=== PATIENT | female | born 2000 | race American Indian/Alaskan Native ===

== ENCOUNTER 2019-01-13 10:33 | Emergency (ER) | payer SELFPAY ==
[2019-01-13 10:42] VITALS: BP 101/62
--- NOTE | 2019-01-13 12:45 | Emergency Department Report ---
HPI - General Chief Complaint: Medical Clearance Time Seen by Provider: 01/13/19 11:28 - HPI HPI: 19 yo AA F presents to the emergency department with the complaint of some intermittent pelvic pain, intermittent vaginal bleeding, while . The patient was sent home from [facility] due to her symptoms and their concern for a high risk . She is about 4 months but does not have a local primary care physician or [facility]. She allegedly has a history of "my placenta is covering the opening to my uterus." She has not taken anything for her symptoms prior to presentation. She denies any dysuria, vaginal discharge, fever, nausea, vomiting, back pain. ED Past Medical Hx - Past Medical History Previous Medical History?: No - Surgical History Past Surgical History?: No - Social History Smoking Status: Never Smoker Substance Use Type: None - Medications Home Medications: Home Medications Medication Instructions Recorded Confirmed Last Taken Type Vit-Fe Fumar-FA [ 1 tab PO QDAY #30 tablet 01/13/19 Unknown Rx Vitamin] ED Review of Systems ROS: Stated complaint: TEST Other details as noted in HPI Comment: All other systems reviewed and negative Constitutional: denies: chills, fever Respiratory: denies: shortness of breath Cardiovascular: denies: chest pain Gastrointestinal: denies: vomiting, diarrhea Genitourinary: other (intermittent vaginal bleeding and pelvic pain). denies: dysuria, discharge Musculoskeletal: denies: back pain Physical Exam - Physical Exam Vital Signs: Vital Signs 01/13/19 10:37 Temperature 97.8 F Pulse Rate 77 Respiratory 16 Rate Blood Pressure 101/62 O2 Sat by Pulse 100 Oximetry Physical Exam: GENERAL: The patient is well-developed well-nourished. HENT: Normocephalic. Atraumatic. Patient has moist mucous membranes. EYES: Extraocular motions are intact. NECK: Supple. Trachea is midline. CHEST/LUNGS: Clear to auscultation. There is no respiratory distress noted. HEART/CARDIOVASCULAR: Regular. There is no tachycardia. There is no murmur. ABDOMEN: Abdomen is soft, nontender. Patient has normal bowel sounds. There is no abdominal distention. SKIN: Skin is warm and dry. NEURO: The patient is awake, alert, and oriented. The patient is cooperative. Normal speech. MUSCULOSKELETAL: There is no tenderness or deformity. There is no evidence of acute injury. ED Course Vital Signs 01/13/19 10:37 Temperature 97.8 F Pulse Rate 77 Respiratory 16 Rate Blood Pressure 101/62 O2 Sat by Pulse 100 Oximetry ED Medical Decision Making - Lab Data Result diagrams: 01/13/19 12:55 - Radiology Data Radiology results: report reviewed ULTRASOUND OBSTETRIC Indication: Preg, bleeding, history of placenta previa Findings: There is a single intrauterine . BPD = 3.9 cm = 17 weeks, 5 day(s). Head circumference = 15.1 cm = 18 weeks, 1 day(s). Abdominal circumference = 12.4 cm = 18 weeks, 0 day(s). Femur length = 2.9 cm = 18 weeks, 6 day(s). Overall estimated sonographic age = 18 weeks, 1 day(s). heart rate is 138 beats per minute. Estimated weight is 238 grams The cervix measures 3.3 cm. position is breech. Placenta is right lateral and grade 0. The placenta appears to be free of the cervical os. Amniotic fluid volume appears normal. Four-chamber view of the heart could not be visualized cord insertion could not be visualized. Impression: 1. Single living intrauterine with estimated sonographic age of 18 weeks, 1 day(s). 2. No sonographic abnormality identified. Four-chamber view of the heart and cord insertion could not be visualized. - Medical Decision Making This patient presents to the emergency department with concern for the health of her she's had some recent pelvic pains, vaginal bleeding and allegedly a history of placenta previa. Labs are mostly unremarkable. Ultrasound shows a live intrauterine without any obvious abnormalities. Initially there was some concern that the patient was Rh-, which she is, but she later tells us that she recently had a RhoGAM shot about one week ago. Her vital signs are stable throughout her ED course. The rest of blood work is unremarkable. She appears safe for discharge home at this time. She has been given multiple referrals for local [facility] groups in the area. She will return to the emergency Department with any worsening of her symptoms or any acute distress. - Differential Diagnosis , threatened miscarriage, spontaneous miscarriage, fibroids Critical Care Time: No Critical care attestation.: If time is entered above; I have spent that time in minutes in the direct care of this critically ill patient, excluding procedure time. ED Disposition Clinical Impression: Qualifiers: Weeks of gestation: 18 weeks Qualified Code(s): Z3A.18 - 18 weeks gestation of Disposition: DC-01 TO HOME OR SELFCARE Is pt being admited?: No Condition: Stable Instructions: (ED) Additional Instructions: Please follow-up with an [facility] in the next few days. Return to the emergency Department with any worsening of your symptoms or any acute distress. Prescriptions: Vit-Fe Fumar-FA [ Vitamin] 1 tab PO QDAY #30 tablet Referrals: [facility] [Provider Group] - 2-3 Days [facility] [Provider Group] - 2-3 Days [facility] [Provider Group] - 2-3 Days Time of Disposition: 14:25
--- NOTE | 2019-01-13 13:15 | Ultrasound Report ---
ULTRASOUND OBSTETRIC Indication: Preg, bleeding, history of placenta previa Findings: There is a single intrauterine . BPD = 3.9 cm = 17 weeks, 5 day(s). Head circumference = 15.1 cm = 18 weeks, 1 day(s). Abdominal circumference = 12.4 cm = 18 weeks, 0 day(s). Femur length = 2.9 cm = 18 weeks, 6 day(s). Overall estimated sonographic age = 18 weeks, 1 day(s). heart rate is 138 beats per minute. Estimated weight is 238 grams The cervix measures 3.3 cm. position is breech. Placenta is right lateral and grade 0. The placenta appears to be free of the cervical os. Amniotic fluid volume appears normal. Four-chamber view of the heart could not be visualized cord insertion could not be visualized. Impression: 1. Single living intrauterine with estimated sonographic age of 18 weeks, 1 day(s). 2. No sonographic abnormality identified. Four-chamber view of the heart and cord insertion could not be visualized. Signer Name: Deep Resendiz MD Signed: 01/13/2019 1:11 PM Workstation Name: [id number]
[2019-01-13 13:16] LABS: Basophils % (Auto) 0.2 % (0.0-1.8); Eosinophils # (Auto) 0.1 K/mm3 (0.0-0.4); Eosinophils % (Auto) 1.3 % (0.0-4.3); Hematocrit 40.6 % (30.3-42.9); Hemoglobin 13.4 gm/dl (10.1-14.3); Lymphocytes # (Auto) 1.2 K/mm3 (1.2-5.4); Lymphocytes % (Auto) 16.3 % (13.4-35.0); Mean Corpuscular HGB Conc 33 % (30-34); Mean Corpuscular Volume 84 fl (79-97); Monocytes # (Auto) 0.5 K/mm3 (0.0-0.8); Monocytes % (Auto) 6.2 % (0.0-7.3); Platelet Count 178 K/mm3 (140-440); Red Blood Count 4.82 M/mm3 (3.65-5.03); Red Cell Distribution Width 13.5 % (13.2-15.2)
== END 2019-01-13 14:42 | disposition home or self-care (01) ==
LOC: ED 10:33
DX: O26.892 Other specified pregnancy related conditions, second trimester (principal); R10.2 Pelvic and perineal pain; Z3A.18 18 weeks gestation of pregnancy
CPT/HCPCS: 36415; 76805; 84703; 85025; 85461; 86850; 86870; 86900; 86901

== ENCOUNTER 2019-04-13 17:19 | Outpatient (CLI) | payer MEDICAID ==
[2019-04-13 17:52] VITALS: BP 103/69
[2019-04-13 18:48] LABS: Bacteria,Urine 4+ /HPF (Negative); Bilirubin,Urine NEG (Negative); Blood,Urine NEG (Negative); Color,Urine Yellow (Yellow); Protein,Urine <15 mg/dL mg/dL (Negative)
[2019-04-13] MEDS ORDERED: LACTATED RINGERS 500 ML IV ONE (19:30)
== END 2019-04-13 19:10 | disposition home or self-care (01) ==
LOC: TRG 17:19
PROVIDERS: ATTEND Pediatrics Neonatal-Perinatal Medicine
DX: O26.893 Other specified pregnancy related conditions, third trimester (principal); O47.03 False labor before 37 completed weeks of gestation, third trimester; R42 Dizziness and giddiness; Z3A.31 31 weeks gestation of pregnancy
CPT/HCPCS: 59025; 81001

== ENCOUNTER 2021-03-08 08:16 | Emergency (ER) | payer MEDICAID ==
[2021-03-08 08:31] VITALS: BP 132/85
--- NOTE | 2021-03-08 09:57 | Emergency Department Report ---
ED General Adult HPI - General Chief complaint: Upper Respiratory Infection Stated complaint: BA/COUGH/CHILLS/FEVER Time Seen by Provider: 03/08/21 09:33 Source: patient Mode of arrival: Ambulatory Limitations: No Limitations - History of Present Illness Initial comments: 21-year-old -[place]ian female patient presents with complaints of body aches, chills, and cough x3 days. She states the cough is nonproductive and denies any shortness of breath or chest pain. Patient states her temp at home was 99 orally. She has a past medical history. Patient also denies any loss of taste or smell, nausea/vomiting/diarrhea, abdominal pain, urinary symptoms, and states she has not had the COVID-19 vaccine. Patient has not been tested for Covid since the onset of her symptoms. She also states she has a scratchy throat that is nonpainful - Related Data Previous Rx's Medication Instructions Recorded Last Taken Type Vit-Fe Fumar-FA [ 1 tab PO QDAY #30 tablet 01/13/19 05/27/19 09:00 Rx Vitamin] Ferrous Sulfate [Feosol 325 MG tab] 325 mg PO BID #60 tablet 05/30/19 Unknown Rx Ibuprofen [Motrin] 800 mg PO Q8HR PRN #30 tablet 05/30/19 Unknown Rx oxyCODONE /ACETAMINOPHEN [Percocet 1 tab PO Q6HR PRN #30 tablet 05/30/19 Unknown Rx 5/325] Benzonatate 200 mg PO TID PRN #21 capsule 03/08/21 Unknown Rx Loratadine 10 mg PO QDAY #10 tablet 03/08/21 Unknown Rx guaiFENesin [Guaifenesin ER] 1,200 mg PO BID #14 tab.er.12h 03/08/21 Unknown Rx predniSONE [Deltasone] 20 mg PO BID 3 Days #6 tab 03/08/21 Unknown Rx Allergies Allergy/AdvReac Type Severity Reaction Status Date / Time No Known Allergies Allergy Verified 03/08/21 08:31 ED Review of Systems ROS: Stated complaint: BA/COUGH/CHILLS/FEVER Other details as noted in HPI Constitutional: chills, malaise, weakness. denies: diaphoresis ENT: denies: throat pain Respiratory: cough. denies: shortness of breath Cardiovascular: denies: chest pain Gastrointestinal: denies: abdominal pain, nausea, vomiting Genitourinary: denies: urgency, dysuria, frequency Skin: denies: rash, lesions Neurological: denies: headache Hematological/Lymphatic: denies: swollen glands ED Past Medical Hx - Past Medical History Hx Hypertension: No Hx Congestive Heart Failure: No Hx Diabetes: No Hx Deep Vein Thrombosis: No Hx Renal Disease: No Hx Sickle Cell Disease: No Hx Seizures: No Hx Asthma: No Hx COPD: No Hx HIV: No - Social History Smoking Status: Never Smoker - Medications Home Medications: Home Medications Medication Instructions Recorded Confirmed Last Taken Type Vit-Fe Fumar-FA [ 1 tab PO QDAY #30 tablet 01/13/19 05/27/19 05/27/19 09:00 Rx Vitamin] Ferrous Sulfate [Feosol 325 MG tab] 325 mg PO BID #60 tablet 05/30/19 Unknown Rx Ibuprofen [Motrin] 800 mg PO Q8HR PRN #30 tablet 05/30/19 Unknown Rx oxyCODONE /ACETAMINOPHEN [Percocet 1 tab PO Q6HR PRN #30 tablet 05/30/19 Unknown Rx 5/325] Benzonatate 200 mg PO TID PRN #21 capsule 03/08/21 Unknown Rx Loratadine 10 mg PO QDAY #10 tablet 03/08/21 Unknown Rx guaiFENesin [Guaifenesin ER] 1,200 mg PO BID #14 tab.er.12h 03/08/21 Unknown Rx predniSONE [Deltasone] 20 mg PO BID 3 Days #6 tab 03/08/21 Unknown Rx ED Physical Exam - General Limitations: No Limitations General appearance: alert, in no apparent distress - Head Head exam: Present: atraumatic, normocephalic - Eye Eye exam: Present: normal appearance. Absent: scleral icterus - ENT ENT exam: Present: normal exam, normal orophraynx - Neck Neck exam: Present: normal inspection, full ROM. Absent: tenderness, lymphadeno john - Respiratory Respiratory exam: Present: normal lung sounds bilaterally. Absent: respiratory distress - Cardiovascular Cardiovascular Exam: Present: regular rate, normal rhythm - Back Exam Back exam: Present: full ROM - Neurological Exam Neurological exam: Present: alert, oriented X3 - Psychiatric Psychiatric exam: Present: normal affect, normal mood - Skin Skin exam: Present: warm, dry, intact, normal color. Absent: rash ED Course Vital Signs 03/08/21 08:27 Temperature 98.1 F Pulse Rate 103 H Respiratory 17 Rate Blood Pressure 132/85 O2 Sat by Pulse 100 Oximetry ED Medical Decision Making - Radiology Data Radiology results: report reviewed CHEST 2 VIEWS INDICATION / CLINICAL INFORMATION: cough x 3 days. COMPARISON: None available. FINDINGS: SUPPORT DEVICES: None. HEART / MEDIASTINUM: No significant abnormality. LUNGS / PLEURA: No significant pulmonary or pleural abnormality. No pneumothorax. ADDITIONAL FINDINGS: No significant additional findings. IMPRESSION: 1. No acute findings. - Medical Decision Making 21-year-old -Mal[place] female patient presents with complaints of body aches, chills, and cough x3 days. She states the cough is nonproductive and denies any shortness of breath or chest pain. Patient states her temp at home was 99 orally. She has a past medical history. Patient also denies any loss of taste or smell, nausea/vomiting/diarrhea, abdominal pain, urinary symptoms, and states she has not had the COVID-19 vaccine. Patient has not been tested for Covid since the onset of her symptoms. She also states she has a scratchy throat that is nonpainful No abnormalities noted on physical exam. Chest x-ray is normal. Vitals are within normal limits. Will treat patient for viral syndrome. Patient informed to get outpatient COVID-19 testing within the next 24 to 48 hours and to self quarantine until further instructed. Also recommend patient takes vitamin C, zinc, and drinks plenty of water. She is otherwise well-appearing and stable for discharge home. Strict return precautions were discussed in detail with patient who verbalizes understanding Critical care attestation.: If time is entered above; I have spent that time in minutes in the direct care of this critically ill patient, excluding procedure time. ED Disposition Clinical Impression: Viral URI with cough Disposition: 01 HOME / SELF CARE / HOMELESS Is pt being admited?: No Condition: Stable Instructions: Viral Respiratory Infection, Prevent the Spread of COVID-19 if You Are Sick - [facility] Prescriptions: Benzonatate 200 mg PO TID PRN #21 capsule PRN Reason: Cough predniSONE [Deltasone] 20 mg PO BID 3 Days #6 tab guaiFENesin [Guaifenesin ER] 1,200 mg PO BID #14 tab.er.12h Loratadine 10 mg PO QDAY #10 tablet Referrals: PRIMARY CARE, [Primary Care Provider] - 3-5 Days [facility] [Provider Group] - 3-5 Days
--- NOTE | 2021-03-08 10:30 | XRay Report ---
CHEST 2 VIEWS INDICATION / CLINICAL INFORMATION: cough x 3 days. COMPARISON: None available. FINDINGS: SUPPORT DEVICES: None. HEART / MEDIASTINUM: No significant abnormality. LUNGS / PLEURA: No significant pulmonary or pleural abnormality. No pneumothorax. ADDITIONAL FINDINGS: No significant additional findings. IMPRESSION: 1. No acute findings. Signer Name: Hadley Lombardi MD Signed: 03/08/2021 10:26 AM Workstation Name: [id number]
== END 2021-03-08 11:28 | disposition home or self-care (01) ==
LOC: ED 08:16
DX: J06.9 Acute upper respiratory infection, unspecified (principal); R05.9 Cough, unspecified
CPT/HCPCS: 71046; 99283